=== PATIENT | male | born 1955 | race Two or more races ===

== ENCOUNTER 2021-09-24 15:23 | Emergency (ER) | payer SELFPAY ==
[~2021-09-24] VITALS: Ht 177.8 cm; Wt 85.0 kg
[2021-09-24 15:56] VITALS: BP 182/108
[2021-09-24] MEDS ORDERED: FINA5TAB11 PO (16:00)
[2021-09-24] MEDS ORDERED: TAMS-11 PO (16:00)
[2021-09-24 16:28] LABS: BASOPHILS % 0.5 % (0.0-2.0); EOSINOPHILS % 0.9 % (0.0-5.0); HEMATOCRIT. 47.1 % (42.0-52.0); HEMOGLOBIN. 15.9 g/dL (14.0-18.0); LYMPHOCYTES % 19.4 % (20.0-50.0); MEAN CORPUSCULAR HEMOGLOBIN 29.8 pg (28.0-32.0); MEAN CORPUSCULAR VOLUME 88.4 fL (80.0-94.0); MEAN PLATELET VOLUME 8.3 fl (7.4-10.4); MONOCYTES % 3.7 % (2.0-8.0); NEUTROPHILS % 75.5 % (40.0-76.0); PLATELET 230 x1000/uL (130-400); RED BLOOD CELL COUNT 5.33 mill/uL (4.7-6.1); RED CELL DISTRIBUTION WIDTH 13.1 % (11.6-14.6)
[2021-09-24 16:32] LABS: CHLORIDE 109 mEq/L (98-107)
[2021-09-24 21:03] LABS: CLARITY URINE CLOUDY (CLEAR); COLOR URINE DARK YELLOW (YELLOW); KETONES URINE TRACE (NEGATIVE); LEUKOCYTE ESTERASE URINE NEGATIVE (NEGATIVE); NITRITE URINE NEGATIVE (NEGATIVE); OCCULT BLOOD URINE NEGATIVE (NEGATIVE); PH URINE 5.5 (4.5-8.0); PROTEIN URINE 1+ (NEGATIVE); SPECIFIC GRAVITY URINE 1.032 (1.005-1.030)
[2021-09-24] MEDS ORDERED: CEPH500C2 MT (21:26)
== END 2021-09-24 21:54 | disposition home or self-care (01) ==
LOC: ER 15:23
DX: N40.1 Benign prostatic hyperplasia with lower urinary tract symptoms (principal); N39.0 Urinary tract infection, site not specified; B96.89 Other specified bacterial agents as the cause of diseases classified elsewhere; R00.0 Tachycardia, unspecified
CPT/HCPCS: 36415; 80048; 81003; 85025; 99283